=== PATIENT | male | born 1970 | race Caucasian/White ===

== ENCOUNTER 2023-09-25 11:41 | Emergency (ER) | payer OTHER ==
[~2023-09-25] VITALS: Ht 170.2 cm; Wt 119.3 kg
[2023-09-25 12:01] VITALS: BP_SYST 152; PULSE 76; RESP 19; TEMP 97.6; O2SAT 98
[2023-09-25 12:30] LABS: BILIRUBIN,URINE NEGATIVE (NEGATIVE); BLOOD, URINE 1+ (NEGATIVE); CLARITY/URINE CLEAR (CLEAR); COLOR,URINE YELLOW (YELLOW); GLUCOSE,URINE TRACE (NEGATIVE); KETONES,URINE NEGATIVE (NEGATIVE); LEUKOCYTE ESTERASE ,URINE NEGATIVE (NEGATIVE); NITRITE, URINE NEGATIVE (NEGATIVE); PH,URINE 5.5 (5.0-8.0); PROTEIN URINE 3+ (NEGATIVE); UROBILINOGEN,URINE 0.2 (0.2-1.0)
[2023-09-25 13:00] LABS: BACTERIA,URINE None Seen /HPF (None Seen); WBC,URINE 0-3 /HPF (0-3)
[2023-09-25] MEDS ORDERED: TRAM50TA2 PO (13:14)
[2023-09-25] MEDS ORDERED: IBUP-1971 PO (13:14)
[2023-09-25] MEDS ORDERED: KETOROLAC TROMETHAMINE 60 MG/2 ML VIAL IM ONE (13:15)
[2023-09-25 13:35] VITALS: BP_SYST 152; PULSE 76; RESP 19; TEMP 97.6; O2SAT 98
== END 2023-09-25 13:34 | disposition home or self-care (01) ==
LOC: SED 11:41
DX: S39.012A Strain of muscle, fascia and tendon of lower back, initial encounter (principal); E11.9 Type 2 diabetes mellitus without complications; I10 Essential (primary) hypertension; F17.200 Nicotine dependence, unspecified, uncomplicated; Z79.899 Other long term (current) drug therapy; X58.XXXA Exposure to other specified factors, initial encounter; Y93.89 Activity, other specified; Y92.89 Other specified places as the place of occurrence of the external cause; Y99.8 Other external cause status
CPT/HCPCS: 99284; 81001; 72110; 72170; 96372; 81000; 81015; J1885